=== PATIENT | female | born 1940 | race Caucasian/White ===

== ENCOUNTER 2018-10-26 12:39 | Emergency (ER) | payer MEDICARE ==
[2018-10-26] MEDS ORDERED: SODIUM CHLORIDE 0.9% 1,000 ML IV STA (12:41)
--- NOTE | 2018-10-26 12:48 | ED ---
General Adult HPI - General Stated complaint: poss stroke Time Seen by Provider: 10/26/18 12:41 Source: patient, EMS, RN notes reviewed, old records reviewed - History of Present Illness Initial comments: 78-year-old female presents with suspected stroke. Patient had symptom onset at approximately noon. She has no previous history of TIA or CVA. Patient's has no known chronic medical problems, not currently on any medication. She had an episode of unresponsiveness, there was gaze deviation according to the paramedics. She will have urinary incontinence. Patient has no previous history of seizure disorder. Patient had complete left-sided paralysis according to EMS. The time of arrival she has an NIH of 3, with she has left upper extremity drift, mild dysarthria, and left-sided facial droop. Patient denies pain complaints, no headache, no chest pain. - Related Data Home Medications Medication Instructions Recorded Confirmed No Known Home Medications 10/26/18 10/26/18 Allergies Allergy/AdvReac Type Severity Reaction Status Date / Time No Known Allergies Allergy Verified 10/26/18 13:39 Review of Systems ROS Statement: Those systems with pertinent positive or pertinent negative responses have been documented in the HPI. ROS Other: All systems not noted in ROS Statement are negative. General Exam General appearance: alert Head exam: Present: atraumatic, normocephalic Eye exam: Present: normal appearance ENT exam: Present: normal exam Neck exam: Present: normal inspection. Absent: tenderness, meningismus Respiratory exam: Present: normal lung sounds bilaterally. Absent: respiratory distress, wheezes Cardiovascular Exam: Present: regular rate, normal rhythm GI/Abdominal exam: Present: soft. Absent: distended, tenderness, guarding Extremities exam: Present: normal inspection, normal capillary refill. Absent: pedal edema Neurological exam: Present: alert, oriented X3, motor sensory deficit (Left facial droop, left arm drift, dysarthria, NIH of 3). Absent: CN II-XII intact (Left facial droop) Psychiatric exam: Present: normal affect, normal mood Skin exam: Present: warm, dry, intact. Absent: cyanosis, diaphoretic Course Vital Signs 10/26/18 10/26/18 10/26/18 12:40 12:42 12:55 Temperature 98.5 F Pulse Rate 101 H 93 94 Respiratory 18 18 18 Rate Blood Pressure 214/110 222/108 195/106 O2 Sat by Pulse 100 98 98 Oximetry 10/26/18 13:00 Temperature Pulse Rate 90 Respiratory 18 Rate Blood Pressure 210/129 O2 Sat by Pulse 99 Oximetry - Reevaluation(s) Reevaluation #1: 10/26/18 1259 Case discussed with the neuro interventionalist Dr. Terry, no TPA given improving symptoms without treatment . NIH of 3 Reevaluation #2: 10/26/18 1317 Case discussed with the neuro interventionalist Dr. Terry, regarding patient's hyper dense MCA sign. Recommends aspirin, Brilinta, statin, IV fluids, IV Keppra . NIH of 3 EKG Findings - EKG Comments: EKG Findings:: EKG: Normal sinus rhythm, PAC, artifact in the precordial leads, no ST segment elevation. Rate of 97, CA interval 128, QRS duration 90, QTC 469 Medical Decision Making - Medical Decision Making 78-year-old female presenting with left-sided hemiparesis which had improved at the time of arrival. Code stroke was activated. Patient was taken immediately to computed tomography scan where she received CT brain and CT angiography. 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 All laboratory studies pending. Case discussed with the ER physician at [facility], Dr. Barraza as well as nurse practitioner covering stroke call at [place] Case discussed with the neurologist. - Lab Data Lab Results 10/26/18 Range/Units 12:43 POC Glucose (mg/dL) 105 H (75-99) mg/dL POC Glu [employer] ID Jack Toney Critical Care Time Critical Care Time: Yes Total Critical Care Time: 90 Disposition Clinical Impression: Cerebrovascular accident Disposition: OTHER INSTITUTION NOT DEFINED Condition: Serious Is patient prescribed a controlled substance at d/c from ED?: No Referrals: None,Stated [Primary Care Provider] - 1-2 days Time of Disposition: 14:08 - Out of Hospital Transfer - Req. Specs Out of Hospital Transfer - Requested Specifics: Neurological ICU (Transferred to [facility])
[2018-10-26] MEDS ORDERED: levETIRAcetam IV 1,500 MG in SALINE 1 100ML.BAG IVPB STA (12:54)
[2018-10-26 13:00] LABS: Glucose,Whole Blood 105 mg/dL (75-99)
[2018-10-26 13:06] VITALS: TEMP 98.5
--- NOTE | 2018-10-26 13:06 | CT ---
EXAMINATION TYPE: CT brain wo con for TPA DATE OF EXAM: 10/26/2018 COMPARISON: None HISTORY: Facial droop. CT DLP: 2033 mGycm Automated exposure control for dose reduction was used. FINDINGS: There appears to be a hyperdense right MCA sign on image 28 and 29 suspicious for thrombus within the right middle cerebral artery. Case immediately discussed with referring physician. A moderate generalized degenerative change and diffuse nonspecific white matter changes are seen. Kehinde varium intact. No definite acute intracranial hemorrhage or mass effect. No midline shift. Low-attenuation within the maurilio is suggestive of remote area of infarct. Changes of chronic sinusitis . IMPRESSION: NO ACUTE HEMORRHAGE. THERE DOES APPEAR TO BE HYPERDENSE RIGHT MCA SIGN PARTICULARLY NOTED IMAGE 27 AN D 28 SUSPICIOUS FOR THROMBOSIS OF THE RIGHT MIDDLE CEREBRAL ARTERY. CASE DISCUSSED WITH ER PHYSICIAN.
--- NOTE | 2018-10-26 13:15 | XR ---
EXAMINATION TYPE: XR chest 1V portable DATE OF EXAM: 10/26/2018 COMPARISON: NONE HISTORY: Pain. Possible stroke. TECHNIQUE: Single AP portable frontal semiupright. View of the chest is obtained. FINDINGS: Overlying EKG leads are seen. There is chronic parenchymal change without suspicious focal air space opacity, pleural effusion, or pneumothorax seen. The cardiac silhouette size is enlarged with atherosclerotic aorta. The osseous structures are intact. IMPRESSION: Chronic medical changes and cardiomegaly without acute pulmonary process.
[2018-10-26] MEDS ORDERED: ATORVASTATIN 80 MG TAB PO STA (13:18)
[2018-10-26] MEDS ORDERED: ASPIRIN 325 MG TAB PO STA (13:18)
--- NOTE | 2018-10-26 13:31 | CT ---
EXAMINATION TYPE: CT angio head neck DATE OF EXAM: 10/26/2018 HISTORY: Facial droop. COMPARISON: NONE CT DLP: 374.8 mGycm. Automated Exposure Control for Dose Reduction was Utilized. TECHNIQUE: CTA scan of the head and neck are performed with IV Contrast, patient injected with 65 mL of Isovue 300, axial images are obtained, coronal and sagittal reformatted images are reviewed. Thre e-D reconstructed images are created on an independent workstation and reviewed. FINDINGS: Carotid/Vascular Structures: There is mild calcified plaque in the aortic arch. There is normal three -vessel origin with mild peripheral plaque with no significant stenosis. Visualized portion of subcla vian arteries show mild plaque without significant stenosis. Right common carotid artery shows normal origin from right brachiocephalic artery . No significant plaque or stenosis in right common carotid artery is seen to the bifurcation where there is moderate mixed plaque with more prominent plaque ex tending into the external carotid artery, greater than 50% stenosis is felt present at this level. Ri ght internal carotid artery shows no significant stenosis. There is tortuous course to the right inte rnal carotid artery with moderate calcified plaque supraclinoid segment. No significant stenosis in r ight internal carotid artery is present. Left common carotid artery shows mild calcified plaque mid segment axial image 29. There is more melany re mixed plaque at carotid bulb extending into proximal internal carotid artery with complete occlusi on felt present over a short segment seen best near axial image 138 series 504 with reconstitution di stally. Left external carotid artery shows also shows significant stenosis. Remainder of internal car otid artery shows tortuous course with moderate calcified plaque supraclinoid segment. There is dominant right vertebral artery. Left vertebral artery is occluded or hypoplastic prior to b asilar junction. There is patent right posterior communicating artery. There is no significant focal stenosis or aneurysmal change in the posterior circulation. Vertebral artery measures less than 2 mm in diameter mid to distal segments. There is patent anterior communicating arteries seen. There is no significant focal stenosis or aneur ysmal change in the anterior circulation, at the right MCA trifurcation there is nonvisualized flow i n a branch vessel anterolateral aspect axial image 89 series 508 corresponding to the hyperdense cesar gagan seen on noncontrast CT suspicious for complete occlusion of the smaller vessel Other: There is redemonstration of background moderate diffuse cerebral atrophy and severe chronic sm all vessel ischemic change. There is moderate multilevel disc space narrowing and multilevel uncovert ebral facet degenerative changes in the cervical spine. There is near complete opacification of right maxillary sinus noted. Mild to moderate apical scarring is seen. IMPRESSION: 1. 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 2. There is suspected complete occlusion of small branch after the right MCA trifurcation. 3. Fairly small caliber mid to distal basilar artery raises concern for underlying vertebral basilar insufficiency. 4. Hemodynamically significant stenosis are also identified at origin of bilateral external carotid a rteries.
[2018-10-26] MEDS ORDERED: TICAGRELOR 90 MG TAB PO STA (13:35)
[2018-10-26 14:07] LABS: Basophils % (A) 0 %; Eosinophils # (A) 0.1 k/uL (0-0.7); Eosinophils % (A) 2 %; HCT 43.4 % (34.0-46.0); HGB 14.3 gm/dL (11.4-16.0); Lymphocytes % (A) 18 %; MCHC 32.9 g/dL (31.0-37.0); MCV 97.2 fL (80.0-100.0); Mean Platelet Volume 7.3; Monocytes # (A) 0.3 k/uL (0-1.0); Monocytes % (A) 5 %; Neutrophils # (A) 4.2 k/uL (1.3-7.7); Neutrophils % (A) 74 %; Platelet Count 224 k/uL (150-450); RBC 4.47 m/uL (3.80-5.40); RDW 11.9 % (11.5-15.5); WBC 5.8 k/uL (3.8-10.6)
[2018-10-26 14:22] LABS: Prothrombin Time 10.4 sec (9.0-12.0)
[2018-10-26 14:23] LABS: ALT 41 U/L (9-52); AST 34 U/L (14-36); Albumin 4.4 g/dL (3.5-5.0); Alkaline Phosphatase 62 U/L (38-126); Anion Gap 12 mmol/L; Blood Urea Nitrogen 11 mg/dL (7-17); Calcium 9.9 mg/dL (8.4-10.2); Carbon Dioxide 25 mmol/L (22-30); Chloride 102 mmol/L (98-107); Glucose 119 mg/dL (74-99); Potassium 4.4 mmol/L (3.5-5.1); Sodium 139 mmol/L (137-145); Total Protein 7.5 g/dL (6.3-8.2)
[2018-10-26 14:36] LABS: Partial Thromboplastin Time 19.2 sec (22.0-30.0)
[2018-10-26 14:48] VITALS: BP 145/105; PULSE 97; RESP 18
== END 2018-10-26 15:06 | disposition other institution (70) ==
LOC: EC 12:39
DX: I63.511 Cerebral infarction due to unspecified occlusion or stenosis of right middle cerebral artery (principal); R29.703 NIHSS score 3
CPT/HCPCS: 36415; 80053; 84484; 85025; 85610; 85730; 71045; 70496; 70450; 70498; 99291; 99292; 51702; 96365; 96366; J1953; Q9967

== ENCOUNTER 2019-01-18 09:04 | Day surgery (SDC) | payer MEDICARE ==
[2019-01-11 14:13] VITALS: BMI 23.5
[~2019-01-18 09:04] MED LIST: LACTATED RINGERS 1,000 ML IV SCH; LIDOCAINE 1% 20 ML VIAL (10MG/ML) FOR IV START INTRADERMA PRN
[2019-01-18 09:33] VITALS: TEMP 98.2
[2019-01-18] MEDS ORDERED: LIDOCAINE 1% INJ 10MG/ML (20 ML MDV) ONE (11:37)
[2019-01-18] MEDS ORDERED: PROPOFOL 10 MG/ML 20 ML VIAL IV ONE (11:37)
--- NOTE | 2019-01-18 11:44 | P.GSHP ---
History of Present Illness H&P Date: 01/18/19 Chief Complaint: Malnutrition This is a 79-year-old female with history of malnutrition secondary to stroke. Patient presents today for removal PEG tube. The patient's PEG tube could not be removed in the office. She will undergo EGD with PEG tube removal. Past Medical History Past Medical History: CVA/TIA Additional Past Medical History / Comment(s): cva 10/26/18 lt sided weakness uses wheelchair 2 assist needed. peg tube History of Any Multi-Drug Resistant Organisms: MRSA Date of last positivie culture/infection: 11/15/18 MDRO Source:: THIGH MRSA Past Surgical History: No Surgical Hx Reported Additional Past Surgical History / Comment(s): lt carotid with stent 10/2018 Past Anesthesia/Blood Transfusion Reactions: No Reported Reaction Smoking Status: Never smoker - Past Family History Mother Family Medical History: No Reported History Sister(s) Family Medical History: Deep Vein Thrombosis (DVT) Medications and Allergies Home Medications Medication Instructions Recorded Confirmed Type Acetaminophen 2 tab PEG/G-TUBE Q4H PRN 01/16/19 01/18/19 History Ammonium Lactate Cream [Lac-Hydrin 1 applic TOPICAL DAILY PRN 01/16/19 01/16/19 History 12% Cream] Apixaban [Eliquis] 2.5 mg PEG/G-TUBE DAILY 01/16/19 01/18/19 History Atorvastatin Calcium [Lipitor] 40 mg PEG/G-TUBE HS 01/16/19 01/18/19 History Bisacodyl [Dulcolax] 10 mg RECTAL DAILY PRN 01/16/19 01/18/19 History Ipratropium-Albuterol Nebulize 3 ml INHALATION Q6H 01/16/19 01/16/19 History [Duoneb 0.5 mg-3 mg/3 ml Soln] Losartan Potassium [Cozaar] 25 mg PEG/G-TUBE DAILY 01/16/19 01/18/19 History Magnesium Hydroxide [Milk of 30 ml PEG/G-TUBE DAILY PRN 01/16/19 01/18/19 History Magnesia Concentrate] Metoprolol Tartrate [Lopressor] 37.5 mg PEG/G-TUBE BID 01/16/19 01/18/19 History Na Phos,M-B/Na Phos,Di-Ba [Fleet 133 ml RECTAL ONCE PRN 01/16/19 01/18/19 History Adult] Ondansetron HCl 8 mg PEG/G-TUBE Q8HR PRN 01/16/19 01/18/19 History Pantoprazole Sodium 40 mg PEG/G-TUBE BID 01/16/19 01/18/19 History Allergies Allergy/AdvReac Type Severity Reaction Status Date / Time No Known Allergies Allergy Verified 01/18/19 09:20 Surgical - Exam Vital Signs Temp Pulse Resp BP Pulse Ox 98.2 F 58 L 16 177/72 94 L 01/18/19 09:30 01/18/19 09:30 01/18/19 09:30 01/18/19 09:30 01/18/19 09:30 - General well developed, well nourished, no distress - Eyes PERRL - ENT normal pinna - Neck no masses - Respiratory normal expansion - Cardiovascular Rhythm: regular - Abdomen Abdomen: soft, non tender Assessment and Plan Assessment: History of malnutrition. We'll perform removal of PEG tube.
--- NOTE | 2019-01-18 11:55 | P.OP ---
Date of Procedure: 01/18/19 Preoperative Diagnosis: Malnutrition Postoperative Diagnosis: Malnutrition Procedure(s) Performed: EGD Removal of PEG tube Anesthesia: MAC Surgeon: Otto Ragland Pathology: none sent Condition: stable Disposition: PACU Description of Procedure: The patient's placed on the endoscopy table in the lateral position she received IV sedation. The gastroscope placed oropharynx and passed in the esophagus and into the stomach. Scope was then placed through the pylorus. The first and second portion of the duodenum appeared normal. Scope was then brought back the antrum this appeared normal. The patient had a previous a place PEG tube this was visualized in the distal part of the stomach. Under direct vision with traction the PEG tube was removed. The PEG tube required significant traction to remove. The PEG tube site was visualized afterwards there is no significant bleeding seen within the stomach. The scope was then withdrawn. Patient top she will was sent to recovery in stable condition.
[2019-01-18] MEDS ORDERED: LACTATED RINGERS 1,000 ML IV ONE (12:01)
[2019-01-18 12:03] VITALS: RESP 18
[2019-01-18 12:39] VITALS: BP 151/87; PULSE 67
== END 2019-01-18 12:39 | disposition home or self-care (01) ==
LOC: ORWHC2ENDO 09:04
PROVIDERS: ATTEND Surgery
DX: Z43.1 Encounter for attention to gastrostomy (principal); E46 Unspecified protein-calorie malnutrition; I69.398 Other sequelae of cerebral infarction; Z79.01 Long term (current) use of anticoagulants; I69.354 Hemiplegia and hemiparesis following cerebral infarction affecting left non-dominant side; Z79.899 Other long term (current) drug therapy
CPT/HCPCS: 43247; J2001; J2704